=== PATIENT | female | born 1990 | race Caucasian/White ===

== ENCOUNTER → 2018-10-08 17:50 | Emergency (ER) | payer OTHER ==
[~2018-10-08 17:50] MED LIST: Tetan/Diph/Pertus SYR(Tdap)* 0.5 ML SYR(BOOSTRIX) use SYR IM ONE
--- NOTE | 2018-10-08 18:18 | ED ---
Laceration/Wound HPI - HPI Summary HPI Summary: 28-year-old female presents with right thumb laceration today. She states she cut it with a cheese blade grinder. States area continues to bleed. She was seen at urgent care and sent here because area continues to bleed. She states her tetanus is up-to-date. Has no medical conditions. Has full range motion of finger. Denies any other injuries. States it is a throbbing pain. She was given block at well now. - History of Current Complaint Stated Complaint: RIGHT THUMB LAC PER PT Time Seen by Provider: 10/08/18 18:03 Pain Intensity: 8 - Allergy/Home Medications Allergies/Adverse Reactions: Allergies Allergy/AdvReac Type Severity Reaction Status Date / Time acetaminophen [From Percocet] Allergy Unknown Verified 10/08/18 17:56 Reaction Details oxycodone [From Percocet] Allergy Unknown Verified 10/08/18 17:56 Reaction Details Sulfa (Sulfonamide Allergy Vomiting Verified 10/08/18 17:56 Antibiotics) PMH/Surg Hx/FS Hx/Imm Hx Endocrine/Hematology History: Denies: Hx Anticoagulant Therapy Cardiovascular History: Denies: Hx Myocardial Infarction Infectious Disease History: No Infectious Disease History: Denies: Traveled Outside the [place] in Last 30 Days - Family History Known Family History: Positive: Non-Contributory - Social History Alcohol Use: Occasionally Substance Use Type: Reports: Marijuana Smoking Status (MU): Former Smoker Review of Systems Negative: Fever Negative: Chest Pain Negative: Shortness Of Breath Positive: Other - right thumb laceration All Other Systems Reviewed And Are Negative: Yes Physical Exam Triage Information Reviewed: Yes Vital Signs On Initial Exam: Initial Vitals Temp Pulse Resp BP Pulse Ox 97.9 F 92 16 136/92 98 10/08/18 17:56 10/08/18 17:56 10/08/18 17:56 10/08/18 17:56 10/08/18 17:56 Vital Signs Reviewed: Yes Appearance: Positive: Well-Appearing Skin: Positive: Warm, Dry, Other - 2cm by 1cm avulsion to right thumb nail with no active bleeding Head/Face: Positive: Normal Head/Face Inspection Eyes: Positive: Normal, Conjunctiva Clear ENT: Positive: Pharynx normal Respiratory/Lung Sounds: Positive: Clear to Auscultation, Breath Sounds Present Cardiovascular: Positive: Normal, RRR Musculoskeletal: Positive: Strength/ROM Intact - right thumb, Other - good pulses Neurological: Positive: Normal Psychiatric: Positive: Normal Procedures - Laceration/Wound Repair 1 Location: Other - right thumb Description: Irregular Length, Depth and Shape: 2cm by 1cm avulsion Irrigated w/ Saline (ccs): 50 Sterile Dressing Applied?: Yes - surgicial, coband, xeroform, and telfa Diagnostics - Vital Signs Vital Signs Temp Pulse Resp BP Pulse Ox 10/08/18 17:56 97.9 F 92 16 136/92 98 - Laboratory Lab Statement: Any lab studies that have been ordered have been reviewed, and results considered in the medical decision making process. Laceration Repair Course/Dx - Course Course Of Treatment: 28-year-old female presents with right thumb laceration today. She states she cut it with a cheese blade grinder. States area continues to bleed. She was seen at urgent care and sent here because area continues to blee. She states her tetanus is up-to-date. Has no medical conditions. Has full range motion of finger. Denies any other injuries. States it is a throbbing pain. She was given block at well now. On exam has avulsion of the nail and skin of the right thumb. Neurovascular intact. X-ray shows no fracture. Cleaned area and place a pressure dressing with Surgicel Xeroform Coband and Telfa. Told to change the dressing in 48 hours. Told to watch for any signs of infection. Patient understands agrees with plan. - Differential Dx Differental Diagnoses: Abrasion, Avulsion, Laceration - Clinical Impression Provider Diagnoses: Avulsion of skin of right thumb Discharge - Sign-Out/Discharge Documenting (check all that apply): Patient Departure Patient Received Moderate/Deep Sedation with Procedure: No - Discharge Plan Condition: Good Disposition: HOME Patient Education Materials: Skin Avulsion (ED) Forms: *Work Release Referrals: No Primary Care Phys,NOPCP [Medical Doctor] - Additional Instructions: elevate, apply ice take Tylenol or ibuprofen for pain every 6 hours Keep area in pressure dressing for 48 hours, after 48 hours check for sign of infection leaving absorbable hemostat on wound and rewrap with pressure dressing for another 24 hours Keep area covered after 48 hours Follow up with primary within 5 days Return to ED if develop any new or worsening symptoms - Billing Disposition and Condition Condition: GOOD Disposition: Home
[2018-10-08 19:29] VITALS: BP 143/96
== END | disposition home or self-care (01) ==
LOC: ED 17:50
DX: S61.011A Laceration without foreign body of right thumb without damage to nail, initial encounter (principal); W26.9XXA Contact with unspecified sharp object(s), initial encounter; Z88.2 Allergy status to sulfonamides; Z88.5 Allergy status to narcotic agent; Z88.6 Allergy status to analgesic agent; Z87.891 Personal history of nicotine dependence
CPT/HCPCS: 90471; 90715; 99282